=== PATIENT | female | born 2000 | race Asian ===

== ENCOUNTER 2022-01-25 19:20 | Observation (INO) | payer OTHER ==
[~2022-01-25] VITALS: Ht 154.9 cm; Wt 96.2 kg
[2022-01-25 23:36] LABS: BILIRUBIN,URINE NEGATIVE (NEGATIVE); BLOOD, URINE NEGATIVE (NEGATIVE); COLOR,URINE YELLOW (YELLOW); GLUCOSE,URINE NEGATIVE (NEGATIVE); KETONES,URINE TRACE (NEGATIVE); LEUKOCYTE ESTERASE ,URINE NEGATIVE (NEGATIVE); NITRITE, URINE NEGATIVE (NEGATIVE); PROTEIN URINE NEGATIVE (NEGATIVE); UROBILINOGEN,URINE 0.2 (0.2-1.0)
[2022-01-25 23:40] LABS: CLARITY/URINE SLIGHTLY HAZY (CLEAR)
== END 2022-01-25 20:55 | disposition home or self-care (01) ==
LOC: SPU 19:20
PROVIDERS: ADMIT Obstetrics & Gynecology; ATTEND Obstetrics & Gynecology
DX: O42.113 Preterm premature rupture of membranes, onset of labor more than 24 hours following rupture, third trimester (principal); O26.893 Other specified pregnancy related conditions, third trimester; R10.2 Pelvic and perineal pain; R10.30 Lower abdominal pain, unspecified; O99.891 Other specified diseases and conditions complicating pregnancy; M54.9 Dorsalgia, unspecified; Z3A.31 31 weeks gestation of pregnancy
CPT/HCPCS: 81003; G0378; 81002

== ENCOUNTER 2022-03-23 02:35 | Inpatient (IN) | payer OTHER ==
[~2022-03-23] VITALS: Ht 154.9 cm; Wt 97.5 kg
[2022-03-23] MEDS ORDERED: OXYTOCIN/0.9 % SODIUM CHLORIDE 1,000 ML IV SCH ×2 (03:45→17:45)
[2022-03-23] MEDS ORDERED: AMPICILLIN SODIUM 2 GM in NS 100 ML IV ONE (03:45)
[2022-03-23] MEDS ORDERED: NALBUPHINE HCL 10 MG/ML AMP IVP PRN (03:45)
[2022-03-23] MEDS ORDERED: LR 1,000 ML IV ONE (03:45)
[2022-03-23] MEDS ORDERED: TERBUTALINE SULFATE 1 MG/ML VIAL SUBCUT ONE (03:45)
[2022-03-23 04:21] LABS: BASOPHILS # (AUTO) 0.1 K/uL (0.0-0.2); BASOPHILS % (AUTO) 0.7 % (0.0-2.0); EOSINOPHILS # (AUTO) 0.3 K/uL (0.0-0.4); EOSINOPHILS % (AUTO) 2.5 % (0.0-4.0); HEMATOCRIT 41.9 % (36-48); HEMOGLOBIN 14.4 g/dL (12.0-16.0); LYMPHOCYTES # (AUTO) 1.9 K/uL (1.0-5.5); LYMPHOCYTES % (AUTO) 14.3 % (20.5-51.5); MEAN CORPUSCULAR HEMOGLOBIN 31 pg (27-31); MEAN CORPUSCULAR HGB CONC 34 % (32-36); MEAN CORPUSCULAR VOLUME 92 fL (79.0-98.0); MONOCYTES # (AUTO) 0.8 K/uL (0.0-1.0); MONOCYTES % (AUTO) 5.7 % (1.7-9.3); NEUTROPHILS # (AUTO) 10.1 K/uL (1.8-7.7); NEUTROPHILS % (AUTO) 76.8 % (40.0-70.0); PLATELET COUNT (AUTO) 269 K/uL (130-430); RED BLOOD CELL COUNT(AUTO) 4.57 MIL/uL (4.2-6.2); RED CELL DISTRIBUTION WIDTH 13.3 % (9.0-15.0); WHITE BLOOD COUNT (AUTO) 13.2 K/uL (4.5-11.0)
[2022-03-23] MEDS ORDERED: AMPICILLIN SODIUM 2 GM VIAL ONE (04:42)
[2022-03-23] MEDS: NALBUPHINE HCL 10 MG/ML AMP IVP PRN ×2 (05:12→07:01)
[2022-03-23 05:21] VITALS: BP_SYST 145
[2022-03-23] MEDS: LR 1,000 ML IV SCH ×2 (06:01→07:54)
[2022-03-23] MEDS ORDERED: fentaNYL CITRATE/PF 100 MCG/2 ML AMP ONE (07:36)
[2022-03-23] MEDS ORDERED: FENT2mCg/mL-ROPIVA0.2%/NS EPID 200 ML EP SCH (07:36)
[2022-03-23] MEDS ORDERED: ROPIVACAINE HCL/PF 0.2% 200 ML ONE (07:36)
[2022-03-23] MEDS ORDERED: ePHEDrine sulfate 50 MG/ML VIAL IVP PRN (08:45)
[2022-03-23] MEDS ORDERED: LR 500 ML IV ONE (08:45)
[2022-03-23] MEDS: AMPICILLIN SODIUM 1 GM in NS 50 ML IV SCH ×2 (08:54→13:19)
[2022-03-23] MEDS ORDERED: DERMOPLAST SPRAY TP PRN (17:45)
[2022-03-23] MEDS ORDERED: METHYLERGONOVINE MALEATE 0.2 MG TABLET PO PRN (17:45)
[2022-03-23] MEDS ORDERED: ANUSOL 1 EA SUPP.RECT (PREPARATION H) RC PRN (17:45)
[2022-03-23] MEDS ORDERED: WITCH HAZEL LEAF 1 MED.PAD MED.PAD TP PRN (17:45)
[2022-03-23] MEDS ORDERED: OXYCODONE/ACETAMINOPHEN 5-325 TABLET PO PRN ×2 (17:45)
[2022-03-23] MEDS ORDERED: LANOLIN 7 GM OINT. TP PRN (17:45)
[2022-03-23] MEDS ORDERED: HYDROCORTISONE 0.5% CREAM 28.4 GM CREAM.GM. TP PRN (17:45)
[2022-03-23] MEDS ORDERED: OXYTOCIN/0.9 % SODIUM CHLORIDE 1,000 ML IV ONE (17:45)
[2022-03-23] MEDS ORDERED: SENNOSIDES/DOCUSATE SODIUM 1 TAB TABLET(SENOKOT-S) PO SCH (21:00)
[2022-03-23] MEDS ORDERED: TEMAZEPAM 15 MG CAPSULE PO PRN (21:00)
[2022-03-23] MEDS: IBUPROFEN 800 MG TABLET PO PRN (21:26)
[2022-03-23] MEDS ORDERED: ROPIVACAINE HCL/PF 0.2% 200 ML EP ONE (21:45)
[2022-03-24] MEDS: IBUPROFEN 800 MG TABLET PO PRN ×3 (03:17→18:19)
[2022-03-24 06:30] LABS: HEMATOCRIT 32.9 % (36-48); HEMOGLOBIN 11.5 g/dL (12.0-16.0)
[2022-03-24] MEDS: DOCUSATE SODIUM 100 MG CAPSULE PO SCH (18:19)
[2022-03-25] MEDS: IBUPROFEN 800 MG TABLET PO PRN ×3 (06:03→12:03)
[2022-03-25] MEDS: DOCUSATE SODIUM 100 MG CAPSULE PO SCH (12:03)
== END 2022-03-25 15:30 | disposition home or self-care (01) | DRG 560 ==
LOC: SPU 02:35
PROVIDERS: ADMIT Obstetrics & Gynecology; ATTEND Obstetrics & Gynecology
PROC: 10D07Z6 Extraction of Products of Conception, Vacuum, Via Natural or Artificial Opening (ICD-10-PCS; principal; 2022-03-23)
PROC: 0HQ9XZZ Repair Perineum Skin, External Approach (ICD-10-PCS; 2022-03-23)
PROC: 3E0R3BZ Introduction of Anesthetic Agent into Spinal Canal, Percutaneous Approach (ICD-10-PCS; 2022-03-23)
PROC: 00HU33Z Insertion of Infusion Device into Spinal Canal, Percutaneous Approach (ICD-10-PCS; 2022-03-23)
DX: O70.0 First degree perineal laceration during delivery (principal); Z37.0 Single live birth; R71.0 Precipitous drop in hematocrit; Z20.822 Contact with and (suspected) exposure to COVID-19; Z3A.39 39 weeks gestation of pregnancy
CPT/HCPCS: 36415; 81002; 82947; 85018; 85025; 86592; 86886; 86900; 86901; 94760; J0290; J2300; J2590; J3010